=== PATIENT | female | born 1975 | race Caucasian/White ===

== ENCOUNTER 2016-10-31 15:47 | Inpatient (IN) | payer OTHER ==
[~2016-10-31] VITALS: Ht 162.6 cm; Wt 51.5 kg
[2016-10-31 16:49] LABS: BASO # 0.2 x10^3/uL (0.0-0.2); BASO % 1 % (0-3); EOS % 0 % (0-3); HEMATOCRIT 38.7 % (36.0-47.0); LYMPH # 2.9 x10^3/uL (1.0-4.8); LYMPH % 21 % (24-48); MEAN CORPUSCULAR HEMOGLOBIN 30 pg (25-35); MEAN CORPUSCULAR HGB CONC 34 g/dL (31-37); MEAN CORPUSCULAR VOLUME 89 fL (79-100); MONO % 7 % (0-9); NEUT # 9.9 x10^3uL (1.8-7.7); NEUT % 71 % (31-73); PLATELET COUNT 338 x10^3/uL (140-400); RED BLOOD COUNT 4.34 x10^6/uL (3.50-5.40); RED CELL DISTRIBUTION WIDTH 14.3 % (11.5-14.5); WHITE BLOOD COUNT 13.9 x10^3/uL (4.0-11.0)
[2016-10-31 16:53] LABS: CALCIUM 9.2 mg/dL (8.5-10.1); CREATININE 0.7 mg/dL (0.6-1.0); GFR 92.2; POTASSIUM 3.3 mmol/L (3.5-5.1)
[2016-10-31 17:00] LABS: ACETAMIN < 2.0 mcg/mL (10-30); ETHANOL < 10 mg/dL (0-10); SALIC 6.8 mg/dL (2.8-20.0)
[2016-10-31 17:02] LABS: AMPHETAMINE/METHAMPHETAMINE POS (NEG); BARBITURATES NEG (NEG); BENZODIAZEPINES NEG (NEG); CANNABINOIDS POS (NEG); COCAINE NEG (NEG); METHADONE NEG (NEG); OPIATES NEG (NEG); PHENCYCLIDINE NEG (NEG)
[2016-10-31 17:07] LABS: BILIRUBIN,URINE NEG (NEG); CLARITY,URINE HAZY; COLOR,URINE YELLOW; GLUCOSE,URINE NEG (NEG); NITRITE,URINE POS (NEG); UROBILINOGEN,URINE 1 mg/dL (0.2 mg/dL)
[2016-10-31 17:08] LABS: BACTERIA,URINE MANY /HPF (0-FEW); SQUAMOUS EPITHELIAL CELL,UR MANY /LPF
--- NOTE | 2016-10-31 17:44 | PHYS DOC ---
General Chief Complaint: ANXIETY/PANIC ATTACK Stated Complaint: PANIC ATTACK Time Seen by MD: 17:18 Source: patient Problems: History of Present Illness Initial Comments Patient here for medical clearance and psychiatry evaluation. Patient states she has known PTSD and some problems with panic attacks and anxiety. She is normally supposed and Vistaril on Zoloft for this, but has been off it for the last 3 months. She said that yesterday she felt like she was in a panic attack while she was in a cab on the way to the homeless senior living. She says she actually opened the door and got out of the Visit was driving. She says it was a fairly low speed. When she landed, she says she fell on the right side of her thigh and hip. She reports no head hit, no loss of conscious, no seizure activity, no incontinence P she was able to get up and get back into the cab, and then went to spend the night at the homeless senior living. She went guidance center earlier today, and was subsequently referred here for further evaluation. Patient states she is not actively homicidal or suicidal, but says that she feels that if she leaves this facility, that she has no overwhelming feeling that someone is following her and some was going to harm her. She is unable specify who this is. She has no visual or auditory hallucinations. At this time, she really has no complaint of pain from the fall. She denies any headache, visual change, speech change. She's had no fever chills URI symptoms or cough. She denies any neck or back pain. There's no chest pain or shortness of breath. There is no nausea vomiting or abdominal pain. She has no change amount of bladder habits and no focal extremity or neurologic complaints are noted. She says she does have some scrapes and bruises around her knees from yesterday, but is not painful to her. She says that she was sent here for mental health evaluation, and that she is going to go to mental health facility if needed. Other than present for care via the guidance there is been nothing done for this prior to arrival in the ER and no fractures noted increase or decrease any symptoms she might have. Patient's past medical history is remarkable for anxiety and PTSD as noted. She says she normally smokes one pack per day of cigarettes presumptive 3 packs per day now. She's nonuser of ethanol. She admits to marijuana use. Allergies: Coded Allergies: No Known Drug Allergies (Unverified , 10/31/16) Past Medical History Psychosocial History: anxiety, post traumatic stress Social History Smoker: greater than 1 pack/day Alcohol: none Drugs: marijuana Review of Systems All Other Systems: Reviewed and Negative Physical Exam General Appearance: WD/WN, no apparent distress Eyes: bilateral eye EOMI, bilateral eye PERRL, bilateral eye normal inspection Ear, Nose, Throat: normal ENT inspection, normal pharynx Neck: full range of motion, supple, normal inspection Respiratory: lungs clear, normal breath sounds, other Cardiovascular: regular rate, rhythm, no edema Gastrointestinal: non tender, soft, no organomegaly Back: no CVA tenderness, no vertebral tenderness Extremities: normal range of motion, other 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 Vitals are as noted. Pertinent findings on physical exam shows a head atraumatic normocephalic. Pupils are equal reactive light accommodation. Extra ocular movements are intact. Ears and throat clear. Neck is supple. There is no vertebral paraspinal tenderness. Back is similarly clear without any vertebral or paraspinal tenderness. Chest is clear to auscultation bilaterally. She does have some tenderness over the left anterior costal sternal junction left lower anterior chest wall. She doesn't recall if she fell and hit that area during the fall. There is no bruising or signs of trauma, no step-offs or deformities. Palpation does exactly increasing reproduce her discomfort. Cardiac vascular exam shows regular rate and rhythm without murmur. The abdomen is soft and nontender without masses or organomegaly. Extremities show the patient have some pain over the right hip area. There is no signs of trauma. There is some occasional bruises over the area of the right lateral aspect of the right femur. The patient is tender in this area.. There's no deformities. Patient has various bruises and abrasions over the anterior knees bilaterally. The knees themselves are nontender and stable in all planes. There is no distal lower extremity motor, sensory, vascular deficits appreciated bilaterally. Neurologic exam shows an awake alert oriented 4. She is cooperative. Cranial nerves II through XII grossly intact and strength 5 over 5 equal sinus tested. There are no gross sensory deficits. She stands without difficulty and Romberg is negative. She's not actively hallucinating. She is not actively homicidal or suicidal. Remainder of physical exam is clinically unremarkable. Orders, Labs, Meds Old charts note no prior ER visits within the current system. I discussed with the patient and medical clearance process. She voices understanding and acceptance of the same. EKG shows sinus 65. Normal axis. No acute ST or T-wave changes. Labs today are clinically stable. CPK is mildly elevated, probably consistent with the patient's history of fall and injury. MB fraction is unremarkable. Potassium is minimally decreased at 3.3. Drug screen is positive for methamphetamine and for cannabis, the latter consistent with patient's history. test is negative. Patient refused x-rays the right hip, right femur, and chest ordered to evaluate for possibility of injury. 1844 Patient resting comfortably in the ED. She is medically cleared at this time for Telepsych services. Staff notes that the story is somewhat more complex than previous related. Apparently she was seen at one point [facility] yesterday, released, and then was apparently sent by the homeless senior living because she was trespassing on the property afterwards. It's at that point that she apparently jumped from the taxicab. [address] Saenz has visited with the patient. Patient was heard to be extremely unruly,, uncooperative, and manifesting clear. No acute lesions. This is in contrast to how she was earlier tonight at time of my exam, she was relatively calm and cooperative and stated she would be willing to seek psychiatric care she was concerned that if she left the hospital, she would come to harm. Psychiatry suggested the patient be involuntarily committed to inpatient service of stabilization of tanner psychosis. 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 It suggested that the patient received Geodon and lorazepam on a when necessary basis as needed for agitation here in the ED, that she also be started on Zyprexa. Nursing staff has been notified of the psychiatric evaluation and we will be pursuing involuntary placement. 2129 Patient continues to rest in the ED. Guidance Center screener is here now. Patient is sleeping and will not interact with guidance center counselor. We did attempt to contact [facility]. There apparently 16 patient 's backed up already for involuntary admissions. As noted, we do have a recommendation of the chart from psychiatrist for involuntary admission, so I don't think we can let the patient go on her own without further evaluation at this time. I think the safest course of action is admission for continued observation. She can be seen by the guidance center in the morning and possibly even by her own psychiatrist and appropriate disposition arranged accordingly. I 'll complete initial holding orders to include medication recommendations as per the psychiatrist this evening. She is resting at this time awaiting transfer to floor and continued care. UNRULY KUMAR MD Oct 31, 2016 17:44
--- NOTE | 2016-10-31 18:22 | EKG ---
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
[2016-10-31 18:25] LABS: DIRECT BILIRUBIN 0.2 mg/dL (0.0-0.2); TOTAL BILIRUBIN 0.7 mg/dL (0.2-1.0)
[2016-10-31] MEDS ORDERED: TETANUS AND DIPHTHERIA TOX/PF 0.5 ML VIAL. VAX IM ONE (19:00)
[2016-10-31] MEDS ORDERED: OLANZAPINE ZYDIS 5 MG TAB.RAPDIS ONE (22:43)
[2016-10-31] MEDS ORDERED: LORAZEPAM 1 MG TABLET. ONE (22:43)
[2016-10-31] MEDS ORDERED: ZIPRASIDONE IM 20 MG VIAL. IM ONE (22:45)
[2016-10-31] MEDS ORDERED: LORAZEPAM 2 MG/ML VIAL IV ONE (22:45)
[2016-10-31] MEDS ORDERED: LORAZEPAM 1 MG TABLET. PO ONE (23:00)
[2016-10-31] MEDS ORDERED: OLANZAPINE 2.5 MG TABLET PO ONE (23:00)
[2016-10-31 23:35] VITALS: BP 116/78
[2016-11-01] MEDS ORDERED: ZIPRASIDONE IM 20 MG VIAL. IM PRN
[2016-11-01] MEDS ORDERED: LORAZEPAM 2 MG/ML VIAL IM PRN
[2016-11-01] MEDS: LORAZEPAM 1 MG TABLET. PO PRN ×3 (09:39→20:38)
[2016-11-01] MEDS: OLANZAPINE 5 MG TABLET. PO SCH ×2 (09:39→20:37)
[2016-11-01 11:05] VITALS: BP_SYST 125; BP_SYST 143; BP_DIAS 80; BP_DIAS 89
[2016-11-01 16:07] VITALS: BP 101/70
[2016-11-01 17:08] LABS: CALCIUM 8.7 mg/dL (8.5-10.1); CREATININE 0.8 mg/dL (0.6-1.0); POTASSIUM 3.6 mmol/L (3.5-5.1)
[2016-11-01] MEDS: NICOTINE 21MG PATCH. TD SCH (18:18)
[2016-11-01 19:00] VITALS: BP_SYST 105; BP_SYST 123; BP_DIAS 70; BP_DIAS 79
--- NOTE | 2016-11-01 19:41 | HP ---
ADMIT DATE: 11/01/2016 HISTORY OF PRESENT ILLNESS: The patient redness and is a 41-year-old female patient who was brought to the Emergency Room from the [facility] as she apparently is known to have posttraumatic stress disorder and panic attacks and anxiety. She is ____ Vistaril and Zoloft for this has been off all of these medications for the last 3 months. She said that she felt like she was in panic attack while she was in a cab on the way to the homeless assisted and she actually opened the door and got out of the vehicle while driving. She stated it was a fairly low speed when she landed, she states she fell on the right side of her thigh and head and reports no head injury, no loss of consciousness, no seizure activity, no incontinence. She was able to get up and get back into the cab then went to spend the night at the homeless assisted. She went to the [facility] and was subsequently referred to this hospital for further evaluation. The patient stated that she is not actively homicidal or suicidal, but stated that she feels that she leave this facility that she has overwhelming feeling that someone is following her, someone is going to harm her. She is unable to specify who this is. She has no visual and auditory hallucination. She denied at that time any complaint of pain, denied any headache, visual changes, speech changes. No fever, chills, rigors or fever, and she was at telepsych Dr. ____, has visited with the patient and she is willing to seek psychiatric care. She was concerned that if she left the hospital, she would come to harm. Psychiatry suggests the patient be involuntary committed to inpatient service for stabilization of tanner psychosis, this may be related impart to amphetamine abuse. I suggested that the patient receives Geodon and lorazepam on an as needed basis for agitation. She also stated that she should be on Zyprexa and there she has had extensive evaluation in the Emergency Room and was admitted for placement into an Inpatient Psych Unit. PAST MEDICAL HISTORY: Significant for anxiety, posttraumatic stress disorder and panic attack. PAST SURGICAL HISTORY: Significant for three C-sections. ALLERGIES: She has no known drug allergies. MEDICATIONS: She is currently on lorazepam 2 mg per mL injection every intramuscular every 4 hours, olanzapine 5 mg p.o. b.i.d., ziprasidone ____ 20 mg every 4 hours as needed, and Geodon 20 mg intramuscular every 4 hours as needed for agitation. FAMILY HISTORY: She has 3 brothers all younger. Her father in his 60s because of lung cancer. Mother is still alive, but has diverticulitis. SOCIAL HISTORY: She is single. She has 4 sons. She continued to smoke up to 3 packs a day, does not drink alcohol, but uses marijuana. She is unemployed. REVIEW OF SYSTEMS: As per history of present illness. PHYSICAL EXAMINATION: GENERAL: On arrival to the Emergency Room, she apparently was well and was clearly in no apparent respiratory distress. No pallor, jaundice, cyanosis or thyromegaly. No jugular venous distention. No limb edema. VITAL SIGNS: Her heart rate was 65, blood pressure 116/78, temperature was 97.6, respiratory rate was 20, and oxygen saturation was 97%. HEAD, EYES, EARS, NOSE, AND THROAT: Showed normocephalic, atraumatic. NECK: Supple. HEART: Showed normal first and second heart sounds with no gallop, rub or murmur. CHEST: Clear to auscultation. No crepitation or rhonchi. ABDOMEN: Distended, soft, nontender. No guarding or rigidity. No organomegaly. Hernial orifices intact. Bowel sounds normal. NEUROLOGIC: She was awake, alert, clearly extremely paranoid, all cranial nerves intact. EXTREMITIES: She moves extremities without difficulty. LABORATORY DATA: Showed a white cell count of 13,900, hemoglobin 13, hematocrit 38.7, MCV 89 and platelet count of 338,000. Her chemistry showed a serum sodium 137, potassium 3.3, chloride 101, bicarbonate 29, anion gap of 7, BUN 8, creatinine 0.7, estimated GFR was 92 mL per minute. Her glucose 122, calcium was 9.2. Total bilirubin, AST, ALT, alkaline phosphatase were normal. Her total protein was 8, albumin was 4. Her TSH was high at 8.449. Urinalysis was essentially unremarkable. The urine was yellow, hazy with a pH of 6, specific gravity of 1.025. There was trace of protein. The urine was negative for glucose, with trace of ketones and trace of blood, positive for nitrite, negative for leukocyte esterase. The urine showed 1-2 RBCs, 5-10 WBCs, too many bacteria; however, urine test was negative and urine toxicology screen was positive for amphetamine, methamphetamine. ASSESSMENT AND PLAN: So in summary, this is a 41-year-old who is clearly psychotic, who basically extremely paranoid and that who agreed and willing to seek psychiatric care as she was concerned that she left the hospital she would come to harm and Psychiatry suggested the patient to be involuntary recommended to inpatient service for stabilization tanner psychosis. It was felt that this may be impart related to amphetamine abuse and psychiatrist suggested using Geodon, lorazepam as well as Zyprexa. Apparently the patient is here waiting for placement at ____ [facility]. VIRGINIA GAUTHIER MD DR: HUANG/mckayla JOB#: [id number] / [id number]
[2016-11-02] MEDS: LORAZEPAM 1 MG TABLET. PO PRN ×3 (02:27→21:10)
[2016-11-02 05:00] VITALS: BP 122/86
[2016-11-02] MEDS: ZIPRASIDONE 20 MG CAPSULE. PO PRN ×2 (05:05→14:08)
[2016-11-02 06:50] LABS: HEMATOCRIT 36.5 % (36.0-47.0); HEMOGLOBIN 12.4 g/dL (12.0-15.5); RED BLOOD COUNT 4.12 x10^6/uL (3.50-5.40); RED CELL DISTRIBUTION WIDTH 14.3 % (11.5-14.5)
[2016-11-02 07:06] LABS: ALBUMIN 3.2 g/dL (3.4-5.0); ALBUMIN/GLOBULIN RATIO 0.9 (1.0-1.7); CALCIUM 8.5 mg/dL (8.5-10.1); CREATININE 0.7 mg/dL (0.6-1.0); GFR 92.2; POTASSIUM 3.7 mmol/L (3.5-5.1); TOTAL BILIRUBIN 0.5 mg/dL (0.2-1.0); TOTAL PROTEIN 6.8 g/dL (6.4-8.2)
--- NOTE | 2016-11-02 07:42 | PN ---
DATE: 10/31/2016 SUBJECTIVE: The patient is resting, slightly propped up in bed comfortably, in no apparent distress. Denied any complaint. In particular she is not homicidal or suicidal; however, she continued to be extremely paranoid. Nursing staff however did not voice any concern. She is involuntarily committed for inpatient psychiatric treatment and we are awaiting for placement. PHYSICAL EXAMINATION: GENERAL: When I examined her, she looked well and was clearly in no apparent respiratory distress and pale, but no jaundice, cyanosis, or thyromegaly. No jugular venous distention. No limb edema. VITAL SIGNS: His heart rate was 86, blood pressure was 101/70, temperature was 97.4, respiratory rate was 18, and oxygen saturation was 93% on room air. The rest of clinical examination is unremarkable and has not really changed. LABORATORY DATA: Her lab work showed that her serum potassium was only 3.3. White cell count was slightly elevated at 13,900. His CK is slightly elevated. PLAN: My plan is to repeat all these labs today and again tomorrow to make sure that kidney function remained stable, her thyroid function or TSH is high. She seemed to be hypothyroid and we will check her free T4 tomorrow. VIRGINIA GAUTHIER MD DR: HUANG/mckayla JOB#: [id number] / [id number]
[2016-11-02] MEDS: OLANZAPINE 5 MG TABLET. PO SCH ×2 (09:16→19:29)
[2016-11-02] MEDS: NICOTINE 21MG PATCH. TD SCH (09:16)
[2016-11-02 12:03] VITALS: BP 109/74
[2016-11-02 13:07] LABS: THYROXINE 10.1 ug/dL (4.5-12.0)
[2016-11-02 16:30] VITALS: BP 110/79
[2016-11-02 19:08] VITALS: BP 128/85
--- NOTE | 2016-11-02 21:18 | PDOC ---
Exam Silvio Demential Exam: Silvio Note: Please also refer to the separate dictated note~for this date of service dictated separately.~Patient seen individually. Discussed the patient with Nursing staff reviewed the chart.~Reviewed interim history and current functioning. Reviewed vital signs,~Labs/ Radiology~and current medications noted below. Continue current treatment with the changes noted in the dictated addendum note Assessment: Vital Signs: Vital Signs Date Time Temp Pulse Resp B/P Pulse Ox O2 Delivery O2 Flow Rate FiO2 11/02/16 19:08 98.2 90 18 128/85 98 Room Air I&O Intake and Output 11/02/16 07:00 Intake Total 1440 ml Output Total 2 ml Balance 1438 ml Intake Oral 1440 ml Output Urine Total 2 ml # Voids 2 Labs: Laboratory Tests Test 11/02/16 06:39 White Blood Count 8.0x10^3/uL (4.0-11.0) Red Blood Count 4.12x10^6/uL (3.50-5.40) Hemoglobin 12.4g/dL (12.0-15.5) Hematocrit 36.5% (36.0-47.0) Mean Corpuscular Volume 89fL (79-100) Mean Corpuscular Hemoglobin 30pg (25-35) Mean Corpuscular Hemoglobin Concent 34g/dL (31-37) Red Cell Distribution Width 14.3% (11.5-14.5) Platelet Count 294x10^3/uL (140-400) Sodium Level 137mmol/L (136-145) Potassium Level 3.7mmol/L (3.5-5.1) Chloride Level 100mmol/L (98-107) Carbon Dioxide Level 30mmol/L (21-32) Anion Gap 7 (6-14) Blood Urea Nitrogen 8mg/dL (7-20) Creatinine 0.7mg/dL (0.6-1.0) Estimated GFR (Cockcroft-Gault) 92.2 BUN/Creatinine Ratio 11 (6-20) Glucose Level 105mg/dL (70-99) H Calcium Level 8.5mg/dL (8.5-10.1) Total Bilirubin 0.5mg/dL (0.2-1.0) Aspartate Amino Transferase (AST) 28U/L (15-37) Alanine Aminotransferase (ALT) 38U/L (14-59) Alkaline Phosphatase 67U/L (46-116) Creatine Kinase 268U/L (26-192) H Total Protein 6.8g/dL (6.4-8.2) Albumin 3.2g/dL (3.4-5.0) L Albumin/Globulin Ratio 0.9 (1.0-1.7) L Free Thyroxine 1.06ng/dL (0.76-1.46) Thyroxine (T4) 10.1ug/dL (4.5-12.0) Total Triiodothyronine (TT3) 119ng/dL (71-180) Current Medications: Meds: Current Medications Tetanus/ Diphtheria Toxoids Adsorbed (Tenivac Vial) 0.5 ml ONCE ONCE VAX IM ; Start 10/31/16 at 19:00; Stop 10/31/16 at 19:01; Status DC Ziprasidone (Geodon Im) 20 mg 1X ONCE IM ; Start 10/31/16 at 22:45; Stop at 22:46; Status DC Lorazepam (Ativan) 2 mg 1X ONCE IV ; Start 10/31/16 at 22:45; Stop 10/31/16 at 22:46; Status DC Lorazepam (Ativan) 1 mg STK-MED ONCE .ROUTE ; Start 10/31/16 at 22:43; Stop at 22:44; Status DC Olanzapine (Zyprexa Zydis) 5 mg STK-MED ONCE .ROUTE ; Start 10/31/16 at 22:43; Stop 10/31/16 at 22:44; Status DC Lorazepam (Ativan) 2 mg 1X ONCE PO ; Start 10/31/16 at 23:00; Stop 10/31/16 at 23:01; Status DC Olanzapine (Zyprexa) 10 mg 1X ONCE PO ; Start 10/31/16 at 23:00; Stop 10/31/16 at 23:01; Status DC Ziprasidone (Geodon) 20 mg PRN Q4HRS PRN PO AGITATION Last administered on 11/02t 14:08; Start 11/01/16 at 00:00 Ziprasidone (Geodon Im) 20 mg PRN Q4HRS PRN IM AGITATION; Start 11/01/16 at 00: 00 Lorazepam (Ativan) 2 mg PRN Q4HRS PRN IM ANXIETY / AGITATION; Start 11/01/16 at 00:00 Lorazepam (Ativan) 2 mg PRN Q4HRS PRN PO ANXIETY / AGITATION Last administered on 11/02/16 21:10; Start 11/01/16 at 00:00 Olanzapine (Zyprexa) 5 mg BID PO Last administered on 11/02/16 19:29; Start at 09:00 Nicotine (Nicoderm Cq 21mg) 1 patch DAILY TD Last administered on 11/02/16 09: 16; Start 11/01/16 at 18:00 Diagnosis: Problems: (1) Psychosis LIO SAWYER MD Nov 02, 2016 21:18
[2016-11-03 06:20] VITALS: BP 106/72
--- NOTE | 2016-11-03 09:23 | PN ---
DATE: 11/02/2016 SUBJECTIVE: The patient is sitting up in her bed, ____ excited, stated that she has never willingly accepted to go to inpatient psychiatric treatment that she does not want to go to [place]; however, the psychiatrist at [facility] ____ suggested the patient be involuntarily committed to inpatient service for stabilization of tanner psychosis. This might be related in part to amphetamine abuse and she has suggested that the patient receive Geodon and lorazepam when necessary if she becomes agitated. She was also started on Zyprexa and she was admitted to [address] [place] [address] and basically her lab works yesterday showed some abnormalities including her TSH was slightly high at 8.449; however, we did her free T4, total T4 and total T3 and all of them are normal. Her free T4, total T4 and total T3 were all within normal range. Her potassium was low and that was replenished. PHYSICAL EXAMINATION: GENERAL: When I examined her this afternoon, she looked well and was clearly in no apparent respiratory distress, pale, but no jaundice, cyanosis or thyromegaly. No jugular venous distention. No limb edema. VITAL SIGNS: Her heart rate was 103, blood pressure 109/74, temperature was 97.9, respiratory rate was 14 and oxygen saturation was 94%. The rest of clinical examination is unremarkable. Her intake was 1440, no output was recorded. LABORATORY DATA: This morning showed a serum sodium 137, potassium 3.7, chloride 100, bicarbonate 30, anion gap of 7, BUN 8, creatinine 0.7, estimated GFR was 92 mL per minute. Her glucose was 105. Calcium was 8.5. Total bilirubin, AST, ALT, alkaline phosphatase were normal. Her total CK was slightly high at 268; however, total protein was 6.8, albumin 3.2. Her free T4, total T4 and total T3 were all within normal range. Her white cell count was 8000, hemoglobin 12.4, hematocrit 36.5, MCV 89 and platelet count of 294,000. ASSESSMENT AND PLAN: A 41-year-old female patient was clearly markedly paranoid, psychotic, who apparently involuntarily committed for inpatient psychiatric treatment. The manifestation might be related to amphetamine abuse and psychiatrist suggested using Geodon, lorazepam as well as Zyprexa. Apparently, the patient is waiting for placement at [facility]. Her mother is not happy with this arrangement, so I explained to her that our case monitor will be here tomorrow and will decide further management accordingly. VIRGINIA GAUTHIER MD DR: HUANG/mckayla JOB#: [id number] / [id number]
[2016-11-03] MEDS: LORAZEPAM 1 MG TABLET. PO PRN ×3 (09:52→22:08)
[2016-11-03] MEDS: OLANZAPINE 5 MG TABLET. PO SCH ×2 (09:52→22:08)
[2016-11-03] MEDS: NICOTINE 21MG PATCH. TD SCH (09:52)
[2016-11-03] MEDS: LEVOTHYROXINE 25 MCG TABLET. PO SCH (09:52)
[2016-11-03 16:30] VITALS: BP 111/83
[2016-11-03] MEDS: ZIPRASIDONE 20 MG CAPSULE. PO PRN (16:40)
[2016-11-03 18:59] VITALS: BP 105/67
--- NOTE | 2016-11-03 20:50 | PDOC ---
Exam Silvio Demential Exam: Silvio Note: Please also refer to the separate dictated note~for this date of service dictated separately.~Patient seen individually. Discussed the patient with Nursing staff reviewed the chart.~Reviewed interim history and current functioning. Reviewed vital signs,~Labs/ Radiology~and current medications noted below. Continue current treatment with the changes noted in the dictated addendum note Assessment: Vital Signs: Vital Signs Date Time Temp Pulse Resp B/P Pulse Ox O2 Delivery O2 Flow Rate FiO2 11/03/16 18:59 99.1 103 20 105/67 95 Room Air I&O Intake and Output 11/03/16 07:00 Intake Total 1881 ml Balance 1881 ml Intake Oral 1881 ml # Voids 6 Current Medications: Meds: Current Medications Tetanus/ Diphtheria Toxoids Adsorbed (Tenivac Vial) 0.5 ml ONCE ONCE VAX IM ; Start 10/31/16 at 19:00; Stop 10/31/16 at 19:01; Status DC Ziprasidone (Geodon Im) 20 mg 1X ONCE IM ; Start 10/31/16 at 22:45; Stop at 22:46; Status DC Lorazepam (Ativan) 2 mg 1X ONCE IV ; Start 10/31/16 at 22:45; Stop 10/31/16 at 22:46; Status DC Lorazepam (Ativan) 1 mg STK-MED ONCE .ROUTE ; Start 10/31/16 at 22:43; Stop at 22:44; Status DC Olanzapine (Zyprexa Zydis) 5 mg STK-MED ONCE .ROUTE ; Start 10/31/16 at 22:43; Stop 10/31/16 at 22:44; Status DC Lorazepam (Ativan) 2 mg 1X ONCE PO ; Start 10/31/16 at 23:00; Stop 10/31/16 at 23:01; Status DC Olanzapine (Zyprexa) 10 mg 1X ONCE PO ; Start 10/31/16 at 23:00; Stop 10/31/16 at 23:01; Status DC Ziprasidone (Geodon) 20 mg PRN Q4HRS PRN PO AGITATION Last administered on 11/03t 16:40; Start 11/01/16 at 00:00 Ziprasidone (Geodon Im) 20 mg PRN Q4HRS PRN IM AGITATION; Start 11/01/16 at 00: 00 Lorazepam (Ativan) 2 mg PRN Q4HRS PRN IM ANXIETY / AGITATION; Start 11/01/16 at 00:00 Lorazepam (Ativan) 2 mg PRN Q4HRS PRN PO ANXIETY / AGITATION Last administered on 11/03/16 13:36; Start 11/01/16 at 00:00 Olanzapine (Zyprexa) 5 mg BID PO Last administered on 11/03/16 09:52; Start at 09:00 Nicotine (Nicoderm Cq 21mg) 1 patch DAILY TD Last administered on 11/03/16 09: 52; Start 11/01/16 at 18:00 Levothyroxine Sodium (Synthroid) 25 mcg DAILY07 PO Last administered on 09:52; Start 11/03/16 at 08:30 Diagnosis: Problems: (1) Psychosis LIO SAWYER MD Nov 03, 2016 20:50
[2016-11-04] MEDS: LEVOTHYROXINE 25 MCG TABLET. PO SCH (05:34)
[2016-11-04] MEDS: LORAZEPAM 1 MG TABLET. PO PRN ×3 (07:55→16:02)
[2016-11-04 08:07] VITALS: BP 127/87
[2016-11-04] MEDS: OLANZAPINE 5 MG TABLET. PO SCH (08:44)
[2016-11-04] MEDS: NICOTINE 21MG PATCH. TD SCH (08:44)
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
--- NOTE | 2016-11-04 12:47 | PN ---
DATE: 11/03/2016 PROBLEMS: 1. Delusional disorder. 2. Amphetamine abuse. 3. Cannabis abuse. 4. PTSD. 5. Severe anxiety and paranoia. SUBJECTIVE: Awaiting bed availability at [facility]. The patient has been deemed to require admission involuntarily. She is not as paranoid and delusional this morning. She has just got off the phone with her mother ____. She is currently #10 in line for a bed at [facility]. OBJECTIVE: VITAL SIGNS: Blood pressure 106/72, temperature 97.7, pulse 81, respirations 18 and pulse ox is 97% on room air. GENERAL: The patient is crying and somewhat anxious, but she is appropriate, not belligerent or difficult in exam. HEENT: Her tongue was moist. NECK: Supple. LUNGS: Clear. CARDIOVASCULAR: Regular rhythm and rate. ABDOMEN: Soft, nontender. EXTREMITIES: Without edema. PSYCHIATRIC: Mood is anxious and upset. PLAN: She will be seeing Dr. Mendez on a daily basis and will continue to wait for bed availability. RISHI MONROY DO DR: VALENTIN/mckayla JOB#: [id number] / [id number]
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
[2016-11-04] MEDS: ZIPRASIDONE 20 MG CAPSULE. PO PRN (14:38)
[2016-11-04 15:59] VITALS: BP 134/99
== END 2016-11-04 16:00 | disposition short-term general hospital (02) | DRG 885 ==
LOC: ER 15:47 → 1 SOUTH 23:30 → OBSVTOIN 11-02 15:19
PROVIDERS: ADMIT Internal Medicine; ATTEND Internal Medicine
DX: F31.9 Bipolar disorder, unspecified (principal); F22 Delusional disorders; F15.10 Other stimulant abuse, uncomplicated; F12.10 Cannabis abuse, uncomplicated; F17.210 Nicotine dependence, cigarettes, uncomplicated; F41.0 Panic disorder [episodic paroxysmal anxiety]; F43.10 Post-traumatic stress disorder, unspecified; Z75.1 Person awaiting admission to adequate facility elsewhere; Z80.1 Family history of malignant neoplasm of trachea, bronchus and lung
CPT/HCPCS: 36415; 80048; 80053; 80076; 81001; 81025; 82010; 82140; 82550; 82553; 84436; 84439; 84443; 84480; 85027; 87086; 93005; G0378; G0379; G0480; G0481; G6038; 80196